=== PATIENT | female | born 1955 | race Caucasian/White ===

== ENCOUNTER 2018-08-16 10:09 | Inpatient (IN) | payer BC ==
--- NOTE | 2018-08-04 20:34 | HP ---
HISTORY AND PHYSICAL: DATE OF ADMISSION/SURGERY: 08/16/18 DATE OF OFFICE VISIT: 08/03/18 SURGEON: Lizette Robles MD * (DICTATED BY PADDY DEAN) PROCEDURE: Left total hip arthroplasty. CHIEF COMPLAINT: Left hip pain. HISTORY OF PRESENT ILLNESS: Ms. Ching is a 62-year-old female with continued complaints of left hip pain. She has failed conservative treatment and elected to proceed with a left total hip arthroplasty. PAST MEDICAL HISTORY: Denies. PAST SURGICAL HISTORY: Hernia repair and lymph node biopsy. CURRENT MEDICATIONS: 1. EpiPen. 2. Kala. 3. Tylenol. 4. Ibuprofen. 5. Pena juice. ALLERGIES: No known drug allergies. FAMILY HISTORY: Coronary artery disease, diabetes, cancer, and stroke. SOCIAL HISTORY: She is 62-year-old female. She lives with her . She does not smoke or use drugs. Uses occasional alcohol. REVIEW OF SYSTEMS: A complete 14-point review of systems was reviewed with the patient. It was all negative or noncontributory. She denies history of DVT, PE , hepatitis, HIV, or anesthesia problems. PHYSICAL EXAMINATION GENERAL: She is well developed, well nourished, in no acute distress. VITAL SIGNS: She stands 65 inches tall, weighs 172 pounds. Her blood pressure is 120/88 and her heart rate is 74. HEENT: Normocephalic, atraumatic. NECK: Supple. No palpable lymph nodes. PULMONARY: The lungs are clear to auscultation bilaterally. CARDIO: Regular rate and rhythm. Strong S1, S2. ABDOMEN: Soft, nontender, nondistended. NEUROLOGICAL: She is alert and oriented x3. MUSCULOSKELETAL: Left lower extremity: The skin is intact. There are no open wounds or abrasions. She walks with an antalgic-type gait favoring her left hip. She has 110 degrees of hip flexion, 0 degrees of internal rotation, 40 degrees of external rotation. She is able to dorsiflex and plantarflex. She has a 2+ dorsalis pedis pulse and intact sensation. ASSESSMENT AND PLAN: Ms. Ching is a 62-year-old female with end-stage osteoarthritis of the left hip. She has failed conservative treatment and elected to proceed with a left total hip arthroplasty. The surgery is scheduled for 08/16/[address] Robles. discussed the risks and benefits of the surgery at today's visit and all of her questions were answered. She will follow up with Dr. Robles 2 weeks after the surgery. PADDY DEAN [id number]/[facility] #: [id number] MARILUZ
[~2018-08-16 10:09] MED LIST: Buffered Lidocaine 1% SYRIN* 1 ML/SYRINGE INTRADERM ONE; Lactated Ringers 1000 ML Bag* 1,000 ML IV SCH
--- OUTSIDE RECORDS SUMMARY | 2018-08-16 10:13 | XMS REPORT | Continuity of Care Document ---
:1955 External Reference #:[id number] Author Name Porsha Sebastian Care Team Providers Name Role Phone Jacquelyn Cervantes MD Primary Care Physician Unavailable Payers Date Identification Numbers Payment Provider Subscriber Policy Number: [id number] [employer] Sergey Ching PayID: [id number] [address] [address] [place] [address] Advance Directives Description No Information Available Problems Active Problems Provider Date Localized, primary osteoarthritis Lizette Robles M.D. Onset: 03/09/2018 Localized, primary osteoarthritis of the pelvic Lizette Robles M.D. 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 ETOH Use Currently consumes 5-6 drinks/week alcohol Tobacco Use Start: Unknown Patient has never smoked Smoking Status Reviewed: 08/03/18 Patient has never smoked Exercise Type/Frequency Exercises regularly Allergies, Adverse Reactions, Alerts Active Allergies Reaction Severity Comments Date Latex/Adhesive Tape 03/09/2018 Medications Active Medications SIG Qnty Indications Ordering Provider Date Epipen 2-[place] Unknown Ibuprofen Unknown Pena Juice Unknown Kala Allergy 1 tab by mouth Unknown 60mg twice a day as Tablets needed Immunizations Description No Information Available Vital Signs Date Vital Result Comment 08/03/2018 8:30am Height 65.25 inches 5'5.25" Weight 172.00 lb Heart Rate 74 /min BP Systolic 120 mmHg BP Diastolic 88 mmHg Respiratory Rate 16 /min Body Temperature 97.0 F Pain Level 3 BMI (Body Mass Index) 28.4 kg/m2 03/09/2018 10:53am Height 65.25 inches 5'5.25" Weight 175.00 lb Heart Rate 68 /min BP Systolic 140 mmHg BP Diastolic 72 mmHg BMI (Body Mass Index) 28.9 kg/m2 Results Test Date Facility Test Result H/L Range Note Inr/Protime 08/03/2018 [facility] Inr 0.86 N 0.77-1.[address] [place] [address] [phone] Laboratory test 08/03/2018 [facility] Partial 29.8 seconds N 26.0-36.[address] [place] [address] PTT [phone] Comp Metabolic 08/03/2018 [facility] Sodium 140 mmol/L N 135- [address] [place] [address] [phone] Potassium 4.7 mmol/L N 3.5-5.0 Chloride 103 mmol/L N 101-111 Co2 Carbon Dioxide 32 mmol/L N 22-32 Anion Gap 5 mmol/L N 2-11 Glucose 88 mg/dL N 70-100 Blood Urea Nitrogen 20 mg/dL N 6-24 Creatinine 0.79 mg/dL N 0.51-0.95 BUN/Creatinine Ratio 25.3 High 8-20 Calcium 9.9 mg/dL N 8.6-10.3 Total Protein 7.4 g/dL N 6.4-8.9 Albumin 4.5 g/dL N 3.2-5.2 Globulin 2.9 g/dL N 2-4 Albumin/Globulin Ratio 1.6 N 1-3 Total Bilirubin 0.60 mg/dL N 0.2-1.0 Alkaline Phosphatase 55 U/L N 34-104 Alt 19 U/L N 7-52 Ast 22 U/L N 13-39 Egfr Non- 73.7 >60 Egfr 89.2 >60 1 CBC Auto Diff 08/03/2018 [facility] White Blood 7.3 10^3/uL N 3.5-10.[address] [place] [address] [phone] Red Blood Count 4.50 10^6/uL N 3.70-4.87 Hemoglobin 12.6 g/dL N 12.0-16.0 Hematocrit 38 % N 33-41 Mean Corpuscular Volume 85 fL N 80-97 Mean Corpuscular Hemoglobin 28 pg N 27-31 Mean Corpuscular HGB Conc 33 g/dL N 31-36 Red Cell Distribution Width 15 % N 10.5-15 Platelet Count 238 10^3/uL N 150-450 Mean Platelet Volume 9.1 fL N 7.4-10.4 Abs Neutrophils 4.1 10^3/uL N 1.5-7.7 Abs Lymphocytes 2.4 10^3/uL N 1.0-4.8 Abs Monocytes 0.6 10^3/uL N 0-0.8 Abs Eosinophils 0.2 10^3/uL N 0-0.6 Abs Basophils 0 10^3/uL N 0-0.2 Abs Nucleated RBC 0 10^3/uL Granulocyte % 56.3 % Lymphocyte % 33.4 % Monocyte % 7.6 % Eosinophil % 2.3 % Basophil % 0.4 % Nucleated Red Blood Cells % 0.1 Urinalysis Profile 08/03/2018 [facility] Urine Color Yellow [address] [place] [address] [phone] Urine Appearance Clear Urine Specific Conway 1.015 N 1.010-1.030 Urine pH 6.0 N 5-9 Urine Urobilinogen Negative Negative Urine Ketones Negative Negative Urine Protein Negative Negative Urine Leukocytes Negative Negative Urine Blood Negative Negative Urine Nitrite Negative Negative Urine Bilirubin Negative Negative Urine Glucose Negative Negative Type & Screen 08/03/2018 [facility] Patient Blood Type O Positive [address] [place] [address] [phone] Antibody Screen NEGATIVE Urine Culture And 08/03/2018 [facility] Urine Culture SEE RESULT [address] [place] [address] [phone] 1 Because ethnic data is not always readily available, this report includes an eGFR for both -Americans and non- Americans. The National Kidney Disease Education Program (NKDEP) does not endorse the use of the MDRD equation for patients that are not between the ages of 18 and 70, are , have extremes of body size, muscle mass, or nutritional status, or are non- or non-. According to the National Kidney Foundation, irrespective of diagnosis, the stage of the disease is based on the level of kidney function: Stage Description GFR(mL/min/1.73 m(2)) 1 Kidney damage with normal or decreased GFR 90 2 Kidney damage with mild decrease in GFR 60-89 3 Moderate decrease in GFR 30-59 4 Severe decrease in GFR 15-29 5 Kidney failure <15 (or dialysis) 2 SEE RESULT BELOW Name: IVY CHING : [address]: Lizette Robles MD Acct: [id number] Unit: [id number] AGE: 62 Location: [facility] Re08/03/18 SEX: F Status: REG REF SPEC: [id number] DOMENICO: 08/03/18-[address] [facility] [address]: Lizette Robles MD REQ: [id number] RECD: 08/03/18 STATUS: DANELLE SHIELDS DR: Jacquelyn Cervantes MD _ SOURCE: URINE SPDESC: ORDERED: Urine Culture QUERIES: Urine Source: Random Procedure Result Reported Site Urine Culture Final 08/04/18- 1522 ML No growth of clinically significant organisms * ML - Main Lab . END OF REPORT DEPARTMENT OF PATHOLOGY, [address] [place] [address] Guilherme Rooney M.D. 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 836.1 Dislocation Knee Tear Of Lateral Cartilage Or Meniscus [facility] Office Visit 02/18/2009 2:45p Orthopedic Ike Green, 836.0 Dislocation Knee Services Of Manuel Tear Of Medial C.M.A. Cartilage Or Meniscus [facility] Plan of Treatment Future Appointment(s):08/29/2018 8:00 am - Lizette Robles M.D. at [facility].A.08/16/2018 1:45 pm - CHRISTOPHER Harrison at [facility].A.08/16/2018 1:45 pm - PADDY Rizvi at [facility]..08/16/2018 1:45 pm - Lizette Robles M.D. at [facility].A.10/25/2018 3:30 pm - Maximiliano Harris MD at [facility]08/03/2018 - Lizette Robles M.D.M25.552 Pain in left hipFollow up: Follow up: 2 weeks after wbzrhdsZ43.12 Unilateral primary osteoarthritis, left hip
[2018-08-16] MEDS ORDERED: ceFAZolin 2 GM in NS PREMIX(*) 2 GM/100 ML BAG IVPB ONE (10:39)
[2018-08-16] MEDS ORDERED: Buffered Lidocaine 1% SYRIN* 1 ML/SYRINGE INTRADERM ONE (10:39)
[2018-08-16] MEDS ORDERED: Midazolam* 1 MG/ML 5 ML VIAL (5 MG) ONE (12:39)
[2018-08-16] MEDS ORDERED: fentaNYL* 50 MCG/ML 2 ML VIAL (100 MCG VIAL) ONE (12:55)
[2018-08-16] MEDS ORDERED: Dexamethasone IV* 4 MG/ML 1 ML (4 MG) ONE (13:18)
[2018-08-16] MEDS ORDERED: Midazolam* 1 MG/ML 2 ML VIAL (2 MG) ONE (14:15)
[2018-08-16] MEDS ORDERED: Ondansetron INJ* 2 MG/ML VIAL ONE (14:16)
[2018-08-16] MEDS ORDERED: Ketorolac INJ* 30 MG/ML 1 ML VIAL ONE (14:16)
[2018-08-16] MEDS ORDERED: Bupivacaine 0.5%* 50 ML VIAL ONE (14:49)
[2018-08-16] MEDS ORDERED: DiMENhydriNATE IV* 50 MG/ML VIAL IV PUSH PRN (15:13)
[2018-08-16] MEDS ORDERED: fentaNYL* 50 MCG/ML 2 ML VIAL (100 MCG VIAL) IV PRN (15:13)
[2018-08-16] MEDS ORDERED: HYDROmorphone INJ1* 1 MG/ML SYRINGE IV PRN (15:13)
[2018-08-16] MEDS ORDERED: Scopolamine 1.5 mg* PATCH TRANSDERM PRN (15:13)
[2018-08-16] MEDS ORDERED: oxyCODONE/Acetamin 5/325 MG* TAB PO PRN (15:13)
[2018-08-16] MEDS ORDERED: Ondansetron INJ* 2 MG/ML VIAL IV PRN ×2 (15:13→15:17)
[2018-08-16] MEDS ORDERED: Naloxone* 0.4 MG/ML 1 ML VIAL IV PRN (15:13)
[2018-08-16] MEDS ORDERED: Morphine INJ* 2 MG/ML 1 ML SYRINGE (TWO MG - NEW SYRINGE VERSION) IV PRN (15:17)
[2018-08-16] MEDS ORDERED: diPHENhydraMINE IV* 50 MG/ML 1 ml VIAL (BENADRYL) IV PRN (15:17)
[2018-08-16] MEDS ORDERED: Bisacodyl SUPP* 10 MG SUPP PR PRN (15:17)
[2018-08-16] MEDS ORDERED: Magnesium Hydroxide LIQ* 30 ML UDC PO PRN (15:17)
[2018-08-16] MEDS ORDERED: Cyclobenzaprine TAB* 10 MG PO PRN (15:17)
[2018-08-16] MEDS ORDERED: Lactated Ringers 1000 ML Bag* 1,000 ML IV SCH (16:00)
--- NOTE | 2018-08-16 16:42 | OP ---
Operative Report - Blank - Operative Report Date of Operation: 08/16/18 Note: ALE GARZA 1955 Date Of Surgery: 08/16/18 Lizette Robles MD Regulator Inspector: Hakeem THOMASON did help throughout the procedure with preparation of the hip, wound retraction, manipulation of the hip, and wound closure. Anesthesiologist: Dr. Camara Anesthesia Type: Spinal Preoperative Diagnosis: Left severe degenerative osteoarthritis of the hip Postoperative Diagnosis: As above Procedure Performed: Left Total Hip Arthroplasty Complications: None Specimen: Femoral head and acetabular reamings sent to pathology. Hardware used: This is uncemented Ramírez total hip arthroplasty hardware for the femur a size left accolade II 4 with 132 degree neck femoral component, for the acetabulum a size 48D trident II tritanium cluster hole shell with a 15 mm screw, for the insert a size 32D trident x3 zero degre insert, and for the femoral head a size 32 + 0 ceramic biolox V40 femoral head. Brief history/Indication: ALE GARZA was known in clinic and had a history of severe left hip pain. She failed conservative treatment with anti- inflammatories, pain pills, intra-articular injections and physical therapy. She elected to undergo left total hip arthroplasty due to continued pain and decreased quality of life. Radiographs showed severe end stage osteoarthritis of the hip with bone on bone contact. Informed consent was obtained from the patient. She understood the risks of surgery included but were not limited to: bleeding, infection, damage to nearby structures, intraoperative fracture, nerve palsy, failure of the hardware, early loosening, stiffness or loss of motion, dislocation, leg length discrepancy, anesthesia complications, stroke, heart attack, blood clot and . She wished to proceed. Intra-Operative findings: Intraoperatively the patient was noted to have severe loss of cartilage of the acetabulum and femoral head. Description of the Procedure: ALE GARZA was identified in the preanesthesia unit. Her left hip was marked as the correct operative side. Informed consent was signed and placed in the chart. The patient was taken to the operating room and placed under anesthesia without complication. A lucero catheter was placed. The patient was placed on the peg board with all bony prominences well padded. The left lower extremity was prepped and draped in the usual sterile fashion. Preoperative time -out was made to correctly identify the patient, side and site. Appropriate intraoperative antibiotics were given within one hour of incision. A standard posterior incision was made and carried sharply down to the lateral fascia. A new 10 blade was used to make an incision in the fascia in line with the skin incision. A charnley retractor was placed. The piriformis and conjoined tendons were identified and elevated off the posterolateral femur using electrocautery. These were tagged with number 5 Ethibond. Next electrocautery was used to make a posterolateral capsular flap and this was tagged with number 5 Ethibonds. The hip was carefully dislocated. Lesser trochanter to the center of the femoral head was measured at 55 mm. The oscillating saw was used to make the femoral neck cut. The femoral head was carefully removed. The femur was retracted anteriorly and the acetabular retractors were placed. Long-handled knife was used to sharply remove any remaining labrum from the acetabular rim. The acetabulum was sequentially reamed up to a size 47. A bleeding subchondral bone bed was obtained. A trial cup was placed and had excellent fit and stability. A 48D trident II tritanium cup was placed and had excellent stability with appropriate anteversion and abduction angle. A single 15 mm screw was placed in the superior posterior quadrant. A size 32D trident x3 zero degree liner was impacted into the acetabular shell. The liner was checked for stability and was stable. Next attention was turned to preparation of the femoral canal. A canal finder was used to enter the proximal femur. The femoral canal was sequentially broached up to a size 4 femoral broach trial. A trial neck and 32 + 0 trial femoral head was chosen. Lesser trochanter to center of the femoral head measurement was satisfactory. The hip was reduced and taken through a range of motion. The hip was stable in all positions with good soft tissue tension and appropriate leg lengths. The hip was dislocated and all trials were removed. The final implant chosen was a accolade II size 4 with 132 degree neck. This stem was impacted into the femoral canal without difficulty. The stem was stable with appropriate anteversion. The femoral head chosen was a 32 + 0 ceramic head. The head was impacted onto the femoral neck without difficulty. The final lesser trochanter to center of the femoral head measurement was satisfactory. The hip was reduced and taken through a range of motion. The hip was stable in all positions with good soft tissue tension and appropriate leg lengths. The hip was copiously irrigated with sterile saline. The previously tagged capsule and tendons were repaired to the posterolateral femur through two trochanteric drill holes. The lateral fascia layer was closed using number 1 vicryls. The rest of the incision was closed in a layered fashion using 0 and 2-0 vicryls. The skin was closed using 3-0 monocryl suture and Dermabond. Sterile adaptic, 4x4s and paper tape was used to cover the incision. The patients anesthesia was reversed without difficulty. She was taken to the PACU in stable condition. Intended weight-bearing will be as tolerated with posterior hip precautions.
[2018-08-16] MEDS: oxyCODONE/Acetamin 5/325 MG* TAB PO PRN (18:30)
--- NOTE | 2018-08-16 21:38 | PN ---
Progress Note - Progress Note Date of Service: 08/16/18 Note: Patient admitted for elective left hip replacement with Dr. Robles - Had surgery earlier today. First time getting out of bed. Was ambulating but became, hot lightheaded, quickly moved to the chair when she had a syncopal episode. CAT team was called. Room very warm - temp was set in 80s. On arrival ABC alert because concern patient wasn't breathing but she quickly became alert and o2 sat was >90%. Manual BP: 86/43. Fluids wide open and patient put in bed. Clammy and diaphoretic. Glucose > 200. Just ate ice cream. EKG: no change. States prolonged IL interval - measured it is not prolonged. PMHx: Osteoarthitis Meds: Tylenol prn Social: no smoking. Occasional EtOH. Lives with , who is a grinding operator in the community Ddx: Likely vasovagal in setting of recent anesthesia and first time ambulating. Will obtain H/H and place on telemetry overnight. Dr. Robles notified. Hospitalist service will follow up on her in AM.
[2018-08-16] MEDS: Lactated Ringers 1000 ML Bag* 1,000 ML IV SCH (22:07)
[2018-08-16] MEDS: ceFAZolin 1 GM ADVAN(*) 1 GM in NS 0.9% 50 ML* 50 ML IVPB SCH (22:08)
[2018-08-16 22:13] LABS: Hematocrit 31 % (33-41); Hemoglobin 10.1 g/dL (12.0-16.0)
[2018-08-16] MEDS: Docusate CAP* 100 MG PO SCH (22:14)
[2018-08-16] MEDS: Magnesium Hydroxide LIQ* 30 ML UDC PO SCH (22:15)
[2018-08-16] MEDS: oxyCODONE TAB* 5 MG TAB PO PRN (22:46)
[2018-08-17] MEDS: oxyCODONE/Acetamin 5/325 MG* TAB PO PRN ×3 (04:10→16:12)
[2018-08-17] MEDS: ceFAZolin 1 GM ADVAN(*) 1 GM in NS 0.9% 50 ML* 50 ML IVPB SCH ×2 (04:46→13:02)
[2018-08-17] MEDS: Lactated Ringers 1000 ML Bag* 1,000 ML IV SCH (04:48)
[2018-08-17] MEDS: oxyCODONE TAB* 5 MG TAB PO PRN (05:59)
[2018-08-17 07:42] LABS: Hematocrit 29 % (33-41); Hemoglobin 9.5 g/dL (12.0-16.0); Mean Platelet Volume 8.5 fL (7.4-10.4); Platelet Count 190 10^3/uL (150-450)
[2018-08-17 08:01] LABS: BUN/Creatinine Ratio 25.7 (8-20); EGFR African American 96.2 (>60); EGFR Non-African American 79.5 (>60); Potassium 4.1 mmol/L (3.5-5.0)
[2018-08-17] MEDS: Apixaban* 2.5 MG TAB PO SCH ×2 (08:24→20:52)
[2018-08-17] MEDS: Docusate CAP* 100 MG PO SCH ×2 (08:24→20:52)
[2018-08-17] MEDS: Magnesium Hydroxide LIQ* 30 ML UDC PO SCH ×2 (08:25→22:09)
--- NOTE | 2018-08-17 08:41 | PN ---
Progress Note - Progress Note Date of Service: 08/17/18 SOAP: Subjective: []Pt seen at bedside. She feels well this morning without CP, SOB, dizziness or nausea. Last night a CAT call was placed due to a syncopal episode. Her left hip pain is well controlled today with 3/10 pain. Objective: []General: Appears well, NAD LLE: Left hip dressing CDI without surrounding erythema. Thigh is soft, DF/PF intact, DP2+, sensation intact to light touch distally Calves supple and nontender without erythema, edema or palpable cords Assessment: []POD 1 sp LTH Plan: []WBAT PT/OT eliquis 2.5 mg po BID x 30 days CAT call after syncopal episode last night Vital Signs Temp 97.4 F 08/17/18 07:34 Pulse 79 08/17/18 07:34 Resp 20 08/17/18 08:01 BP 104/64 08/17/18 08:13 Pulse Ox 99 08/17/18 08:00 Intake & Output 08/16/18 08/17/18 08/17/18 18:59 06:59 18:59 Intake Total 2300 2605 480 Output Total 500 1350 50 Balance 1800 1255 430 Weight 171 lb 6.4 oz Intake: IV Fluids 2299 2004 ABX - CEFAZOLIN 55 LR 2200 1950 NS 100ML, Cefazolin 2G 100 Oral 600 480 Output: Urine 50 Allred 300 1350 Estimated Blood Loss 200 Other: # Bowel Movements 0 Laboratory Last Values Hgb 9.5 g/dL (12.0-16.0) L 08/17/18 07:30 Hct 29 % (33-41) L 08/17/18 07:30 Plt Count 190 10^3/uL (150-450) 08/17/18 07:30 MPV 8.5 fL (7.4-10.4) 08/17/18 07:30 Sodium 137 mmol/L (135-145) 08/17/18 07:30 Potassium 4.1 mmol/L (3.5-5.0) 08/17/18 07:30 Chloride 104 mmol/L (101-111) 08/17/18 07:30 Carbon Dioxide 31 mmol/L (22-32) 08/17/18 07:30 Anion Gap 2 mmol/L (2-11) 08/17/18 07:30 BUN 19 mg/dL (6-24) 08/17/18 07:30 Creatinine 0.74 mg/dL (0.51-0.95) 08/17/18 07:30 Est GFR ( Amer) 96.2 (>60) 08/17/18 07:30 Est GFR (Non-Af Amer) 79.5 (>60) 08/17/18 07:30 BUN/Creatinine Ratio 25.7 (8-20) H 08/17/18 07:30 Glucose 125 mg/dL (70-100) H 08/17/18 07:30 POC Glucose (mg/dL) 214 mg/dL (70-100) H 08/16/18 21:29 Calcium 9.0 mg/dL (8.6-10.3) 08/17/18 07:30
--- NOTE | 2018-08-17 17:09 | PN ---
Subjective Date of Service: 08/17/18 Interval History: Patient seen and examined. Overnight events noted. Patient states she still feels dizzy at times. Discussed pain medications and low BP/syncope. Patient states she does feel better than last night, but not 100%. Pain is well controlled, denies SOB, had chest wall discomfort upon waking which she attributes to sleeping on her back and large breast size. Objective Active Medications: Acetaminophen (Tylenol Tab*) 650 mg PO Q8H PRN PRN Reason: PAIN OR TEMPERATURE Apixaban (Eliquis*) 2.5 mg PO BID [facility] Last Admin: 08/17/18 08:24 Dose: 2.5 mg Bisacodyl (Dulcolax Supp*) 10 mg [place] DAILY PRN PRN Reason: constipation Cyclobenzaprine HCl (Flexeril Tab*) 5 mg PO TID PRN PRN Reason: SPASMS Diphenhydramine HCl (Benadryl Iv*) 25 mg IV Q6H PRN PRN Reason: itching Docusate Sodium (Colace Cap*) 100 mg PO BID [facility] Last Admin: 08/17/18 08:24 Dose: 100 mg Lactated Ringer's (Lactated Ringers 1000 Ml Bag*) 1,000 mls @ 150 mls/hr IV PER RATE [facility] Last Admin: 08/17/18 04:48 Dose: 150 mls/hr Lactulose (Lactulose*) 30 ml PO Q6H PRN PRN Reason: constipation Magnesium Hydroxide (Milk Of Magnesia Liq*) 30 ml PO BID [facility] Last Admin: 08/17/18 08:25 Dose: 30 ml Magnesium Hydroxide (Milk Of Magnesia Liq*) 30 ml PO Q6H PRN PRN Reason: constipation Morphine Sulfate (Morphine Inj (Syringe))*) 2 mg IV Q2H PRN PRN Reason: PAIN Ondansetron HCl (Zofran Inj*) 4 mg IV Q6H PRN PRN Reason: nausea Oxycodone HCl (Roxycodone Tab*) 10 mg PO Q4H PRN PRN Reason: PAIN - SEVERE Last Admin: 08/17/18 05:59 Dose: 10 mg Oxycodone/Acetaminophen (Percocet 5/325 Tab*) 1 tab PO Q4H PRN PRN Reason: PAIN Last Admin: 08/17/18 16:12 Dose: 1 tab Oxycodone/Acetaminophen (Percocet 5/325 Tab*) 2 tab PO Q4H PRN PRN Reason: PAIN Last Admin: 08/17/18 04:10 Dose: 2 tab Pharmacy Profile Note (Scopolamine Patch Remove*) 1 note PATCH OFF Q72H ONE Stop: 08/19/18 15:16 Vital Signs - 8 hr 08/17/18 08/17/18 08/17/18 11:08 12:11 14:31 Temperature 97.9 F Pulse Rate 86 Respiratory 16 18 16 Rate Blood Pressure 99/55 (mmHg) O2 Sat by Pulse 93 Oximetry 08/17/18 08/17/18 08/17/18 15:12 15:16 16:00 Temperature 98.9 F 98.9 F Pulse Rate 86 86 Respiratory 16 16 Rate Blood Pressure 101/57 101/57 (mmHg) O2 Sat by Pulse 99 99 99 Oximetry 08/17/18 16:12 Temperature Pulse Rate Respiratory 18 Rate Blood Pressure (mmHg) O2 Sat by Pulse Oximetry Oxygen Devices in Use Now: None Appearance: alert, NAD Ears/Nose/Mouth/Throat: NL Teeth, Lips, Gums, Mucous Membranes Moist Neck: NL Appearance and Movements; NL JVP, Trachea Midline Respiratory: Symmetrical Chest Expansion and Respiratory Effort, Clear to Auscultation Cardiovascular: NL Sounds; No Murmurs; No JVD, RRR Abdominal: NL Sounds; No Tenderness; No Distention Extremities: No Edema, No Clubbing, Cyanosis Skin: No Rash or Ulcers Neurological: Alert and Oriented x 3, NL Sensation, NL Muscle Strength and Tone Nutrition: Taking PO's Result Diagrams: 08/17/18 07:30 08/17/18 07:30 Assess/Plan/Problems-Billing Assessment: This is a 62 year old female with hx of end stage osteoarthritis that presented on 08/16 for elective LTHA. - Patient Problems (1) Status post total hip replacement, left Code(s): Z96.642 - PRESENCE OF LEFT ARTIFICIAL HIP JOINT SNOMED Code(s): 667432548851 Comment: - POD1 - POC as per orthopedics - Pain control, recommend limiting narcotics given syncope and relative hypotension overnight - OOB with PT/OT - Bowel regimen, DVT prophy with eliquis (2) Syncope Code(s): R55 - SYNCOPE AND COLLAPSE SNOMED Code(s): 670882597 Comment: - Likely vasovagal in the setting of hypotension and narcotics - Continue IVF, TEDs and change positions slowly - Recommend limiting narcotics and close BP monitoring - Stable (3) Chest wall pain Code(s): R07.89 - OTHER CHEST PAIN SNOMED Code(s): 560527677 Comment: - Resolved with repositioning Status and Disposition: Inpatient, dispo likely to home when clear by ortho.
[2018-08-17] MEDS: Acetaminophen TAB* 325 MG PO PRN (17:12)
[2018-08-17] MEDS ORDERED: traMADol TAB* 50 MG PO PRN (17:32)
[2018-08-18] MEDS: Acetaminophen TAB* 325 MG PO PRN ×4 (01:34→19:15)
[2018-08-18 06:17] LABS: Hematocrit 28 % (33-41); Hemoglobin 9.4 g/dL (12.0-16.0); Mean Platelet Volume 8.9 fL (7.4-10.4); Platelet Count 177 10^3/uL (150-450)
[2018-08-18] MEDS ORDERED: Scopolamine 1.5 mg* PATCH TRANSDERM SCH (08:00)
[2018-08-18] MEDS: Docusate CAP* 100 MG PO SCH ×2 (08:27→22:27)
[2018-08-18] MEDS: Magnesium Hydroxide LIQ* 30 ML UDC PO SCH ×2 (08:27→22:29)
[2018-08-18] MEDS: Apixaban* 2.5 MG TAB PO SCH ×2 (08:27→22:27)
[2018-08-18] MEDS ORDERED: HYDROcodone/ACETAMIN 5-325 MG* 1 TAB PO PRN (10:49)
--- NOTE | 2018-08-18 10:52 | PN ---
Progress Note - Progress Note Date of Service: 08/18/18 SOAP: Subjective: []Pt seen at bedside. She is feeling better today, using tylenol only for pain as tramadol made her dizzy. She denies percocet but would like to try norco to see if she can tolerate it before being discharged. Denies CP, SOB, dizziness or nausea currently. Denies dysuria but confirms urgency, frequency and incontinence of urine. Objective: []]General: Appears well, NAD LLE: Left hip dressing changed, incision CDI without surrounding erythema. Thigh is soft, DF/PF intact, DP2+, sensation intact to light touch distally Calves supple and nontender without erythema, edema or palpable cords Assessment: []POD 2 sp LTH Plan: []WBAT PT/OT eliquis 2.5 mg po BID x 30 days Tylenol for pain control. trial norco UA rfx culture Vital Signs Temp 98.1 F 08/18/18 07:44 Pulse 91 08/18/18 07:44 Resp 18 08/18/18 07:44 BP 108/59 08/18/18 07:44 Pulse Ox 97 08/18/18 07:44 Intake & Output 08/17/18 08/18/18 08/18/18 18:59 06:59 18:59 Intake Total 1985 400 Output Total 1450 1400 Balance 535 -1000 Intake: IV Fluids 1085 ABX - CEFAZOLIN 105 LR 980 Oral 900 400 Output: Urine 1450 1400 Other: Estimated Void Medium # Bowel Movements 1 0 Estimated Stool Amount Large # Voids 1 Laboratory Last Values Hgb 9.4 g/dL (12.0-16.0) L 08/18/18 05:32 Hct 28 % (33-41) L 08/18/18 05:32 Plt Count 177 10^3/uL (150-450) 08/18/18 05:32 MPV 8.9 fL (7.4-10.4) 08/18/18 05:32 Sodium 137 mmol/L (135-145) 08/17/18 07:30 Potassium 4.1 mmol/L (3.5-5.0) 08/17/18 07:30 Chloride 104 mmol/L (101-111) 08/17/18 07:30 Carbon Dioxide 31 mmol/L (22-32) 08/17/18 07:30 Anion Gap 2 mmol/L (2-11) 08/17/18 07:30 BUN 19 mg/dL (6-24) 08/17/18 07:30 Creatinine 0.74 mg/dL (0.51-0.95) 08/17/18 07:30 Est GFR ( Amer) 96.2 (>60) 08/17/18 07:30 Est GFR (Non-Af Amer) 79.5 (>60) 08/17/18 07:30 BUN/Creatinine Ratio 25.7 (8-20) H 08/17/18 07:30 Glucose 125 mg/dL (70-100) H 08/17/18 07:30 POC Glucose (mg/dL) 214 mg/dL (70-100) H 08/16/18 21:29 Calcium 9.0 mg/dL (8.6-10.3) 08/17/18 07:30
[2018-08-18 11:02] LABS: Urine Appearance Clear; Urine Blood Negative (Negative); Urine Color Colorless; Urine Ketones Negative (Negative); Urine Protein Negative (Negative); Urine Specific Gravity 1.005 (1.010-1.030); Urine Urobilinogen Negative (Negative)
[2018-08-18 11:03] LABS: Urine Bilirubin Negative (Negative); Urine Glucose Negative (Negative); Urine Nitrite Negative (Negative)
[2018-08-18] MEDS: HYDROcodone/ACETAMIN 5-325 MG* 1 TAB PO PRN ×2 (12:30→19:16)
--- NOTE | 2018-08-18 18:00 | PN ---
Subjective Date of Service: 08/18/18 Interval History: Patient seen and examined, complaint of "dizziness" overnight, concerned about pain meds and afraid to go home. She offers no further complaints at this time. Denies fevers or chills, no n/v/d. Objective Active Medications: Acetaminophen (Tylenol Tab*) 650 mg PO Q4H PRN PRN Reason: PAIN Last Admin: 08/18/18 13:42 Dose: 325 mg Hydrocodone Bitart/Acetaminophen ([place] 5-325 Tab*) 2 tab PO Q4H PRN PRN Reason: PAIN - SEVERE Hydrocodone Bitart/Acetaminophen ([place] 5-325 Tab*) 1 tab PO Q4H PRN PRN Reason: PAIN - MODERATE Last Admin: 08/18/18 12:30 Dose: 1 tab Apixaban (Eliquis*) 2.5 mg PO BID [facility] Last Admin: 08/18/18 08:27 Dose: 2.5 mg Bisacodyl (Dulcolax Supp*) 10 mg AR DAILY PRN PRN Reason: constipation Cyclobenzaprine HCl (Flexeril Tab*) 5 mg PO TID PRN PRN Reason: SPASMS Diphenhydramine HCl (Benadryl Iv*) 25 mg IV Q6H PRN PRN Reason: itching Docusate Sodium (Colace Cap*) 100 mg PO BID [facility] Last Admin: 08/18/18 08:27 Dose: 100 mg Lactulose (Lactulose*) 30 ml PO Q6H PRN PRN Reason: constipation Magnesium Hydroxide (Milk Of Magnesia Liq*) 30 ml PO BID [facility] Last Admin: 08/18/18 08:27 Dose: Not Given Magnesium Hydroxide (Milk Of Magnesia Liq*) 30 ml PO Q6H PRN PRN Reason: constipation Ondansetron HCl (Zofran Inj*) 4 mg IV Q6H PRN PRN Reason: nausea Pharmacy Profile Note (Scopolamine Patch Remove*) 1 note PATCH OFF Q72H [facility] Scopolamine (Transderm-Scop 1.5 Mg Patch*) 1 patch TRANSDERM Q72H [facility] Last Admin: 08/18/18 08:25 Dose: 1 patch Vital Signs - 8 hr 08/18/18 08/18/18 08/18/18 12:26 12:30 15:35 Temperature 98.9 F 98.8 F Pulse Rate 96 93 Respiratory 16 18 16 Rate Blood Pressure 119/67 104/60 (mmHg) O2 Sat by Pulse 99 91 Oximetry 08/18/18 08/18/18 16:00 17:28 Temperature Pulse Rate 96 Respiratory Rate Blood Pressure (mmHg) O2 Sat by Pulse 91 96 Oximetry Oxygen Devices in Use Now: None Appearance: alert, NAD Eyes: No Scleral Icterus, PERRLA Ears/Nose/Mouth/Throat: NL Teeth, Lips, Gums, Mucous Membranes Moist Neck: NL Appearance and Movements; NL JVP, Trachea Midline Respiratory: Symmetrical Chest Expansion and Respiratory Effort, Clear to Auscultation Cardiovascular: NL Sounds; No Murmurs; No JVD, RRR, No Edema Abdominal: NL Sounds; No Tenderness; No Distention Lymphatic: No Cervical Adenopathy Extremities: No Edema, No Clubbing, Cyanosis Skin: No Rash or Ulcers Neurological: Alert and Oriented x 3, NL Sensation, NL Muscle Strength and Tone Nutrition: Taking PO's Result Diagrams: 08/18/18 05:32 08/17/18 07:30 Assess/Plan/Problems-Billing Assessment: This is a 62 year old female with hx of end stage osteoarthritis that presented on 08/16 for elective LTHA. - Patient Problems (1) Status post total hip replacement, left Code(s): Z96.642 - PRESENCE OF LEFT ARTIFICIAL HIP JOINT SNOMED Code(s): 385109488141 Comment: - POD2 - POC as per orthopedics - Pain control, recommend limiting narcotics given syncope and relative hypotension overnight - OOB with PT/OT - Bowel regimen, DVT prophy with eliquis (2) Syncope Code(s): R55 - SYNCOPE AND COLLAPSE SNOMED Code(s): 931092308 Comment: - Stable/Resolved - Likely vasovagal in the setting of hypotension and narcotics - Continue IVF, TEDs and change positions slowly - Recommend limiting narcotics and close BP monitoring - Stable (3) Chest wall pain Code(s): R07.89 - OTHER CHEST PAIN SNOMED Code(s): 019849997 Comment: - Resolved with repositioning Status and Disposition: Inpatient, dispo per ortho. Medically stable. Will sign off.
[2018-08-19] MEDS: HYDROcodone/ACETAMIN 5-325 MG* 1 TAB PO PRN ×3 (01:27→12:11)
[2018-08-19] MEDS: Acetaminophen TAB* 325 MG PO PRN ×3 (01:27→12:12)
[2018-08-19 06:52] LABS: Hematocrit 29 % (33-41); Hemoglobin 9.9 g/dL (12.0-16.0); Mean Platelet Volume 8.8 fL (7.4-10.4); Platelet Count 211 10^3/uL (150-450)
[2018-08-19] MEDS: Apixaban* 2.5 MG TAB PO SCH (08:05)
[2018-08-19] MEDS: Docusate CAP* 100 MG PO SCH (08:05)
[2018-08-19 08:08] VITALS: BP 118/67
[2018-08-19] MEDS: Magnesium Hydroxide LIQ* 30 ML UDC PO SCH (08:37)
--- NOTE | 2018-08-19 11:22 | DS ---
Orthopedic Discharge Summary - Discharge Summary Date of Admission:08/16/18 Date of Discharge: 08/19/18 Date of Surgery: 08/16/18 Attending Orthopedic Provider: Dr. Robles Pre-operative Diagnosis: Degenerative arthritis left hip Operative Procedure: Left total hip arthroplasty Condition of Patient: stable History: ALE GARZA is a 62 year old F with years of increasingly severe left hip pain. Patient has failed conservative management and has elected to undergo a left total hip replacement Hospital Course: ALE was admitted to [facility] on 08/16/18. Patient underwent a left total without complication followed by a brief recovery in PACU and transfer to the Short Stay Surgical Unit in stable condition. Our hospitalist service, physical therapy and occupational therapy also participated in this patients care. She had a vasovagal event the evening of her surgery, evaluated and followed by the hospitalist service. . No further events therafter. Post-op day 1: patient was alert and in no acute distress. Dressing was clean, dry and intact. Operative extremity dorsiflexion and plantarflexion intact, sensation intact to light touch distally, DP2+. Post- op day two: dressing was changed, incision was clean, dry and intact. Patient was deemed to be medically and orthopedically stable for discharge home. Physical therapy goals were met. Home Medications Medication Instructions Recorded Confirmed Type EPINEPHrine [Epipen] 0.3 mg IJ ONCE PRN 08/06/17 08/16/18 History Fexofenadine (NF) [Kala (NF)] 60 mg PO BID PRN 08/12/17 08/16/18 History Pena Juice Supplement 1 dose PO BID PRN 08/03/18 08/16/18 History Acetaminophen Extra Strength 500 mg PO BID PRN 08/16/18 08/16/18 History Apixaban* [Eliquis*] 2.5 mg PO BID #60 tab 08/19/18 Rx Docusate CAP* [Colace Cap*] 100 mg PO BID #30 cap 08/19/18 Rx HYDROcodone/ACETAMIN 5-325 MG* 1 tab PO Q4H PRN #42 tab MDD 6 08/19/18 Rx [[place] 5-325 TAB*] Discharge home WBAT LLE Posterior hip precautions eliquis 1 month post op [place] 5/325 / Tylenol for pain prn follow up as scheduled Dr. Robles 10-14 days
[2018-08-21] MEDS ORDERED: Scopolamine PATCH Remove* 1 NOTE MISC PATCH OFF SCH (08:00)
== END 2018-08-19 13:10 | disposition home health service (06) | DRG 301 ==
LOC: AA 10:09 → SSU 15:18
PROVIDERS: ADMIT Orthopaedic Surgery Adult Reconstructive Orthopaedic Surgery; ATTEND Orthopaedic Surgery Adult Reconstructive Orthopaedic Surgery
PROC: 0SRB04A Replacement of Left Hip Joint with Ceramic on Polyethylene Synthetic Substitute, Uncemented, Open Approach (ICD-10-PCS; principal; 2018-08-16 13:00)
DX: M16.12 Unilateral primary osteoarthritis, left hip (principal); K21.9 Gastro-esophageal reflux disease without esophagitis; J30.9 Allergic rhinitis, unspecified; M19.079 Primary osteoarthritis, unspecified ankle and foot; N60.19 Diffuse cystic mastopathy of unspecified breast; K57.30 Diverticulosis of large intestine without perforation or abscess without bleeding; Z82.49 Family history of ischemic heart disease and other diseases of the circulatory system; Z83.3 Family history of diabetes mellitus; Z82.3 Family history of stroke; Z80.9 Family history of malignant neoplasm, unspecified; Z72.89 Other problems related to lifestyle; R55 Syncope and collapse; R07.89 Other chest pain
CPT/HCPCS: 36415; 72170; 80048; 81003; 85014; 85018; 85049; 88304; 88311; 93005; A9270-GY; C1713; C1776; J0690; J1100; J1885; J2250; J2405; J3010; J3490